=== PATIENT | male | born 1990 | race African-American/Black ===

== ENCOUNTER 2024-06-12 10:16 | Inpatient (IN) | payer BC, SELFPAY ==
[2024-06-12 12:20] LABS: Hematocrit 36.7 % (42.0-52.0); Hemoglobin 11.7 g/dL (14.0-18.0); Mean Corpuscular HGB CONC 31.9 g/dL (32.0-36.0); Mean Corpuscular Hemoglobin 25.2 pg (27.0-31.0); Mean Corpuscular Volume 79.1 fL (78.0-98.0); Mean Platelet Volume 10.3 fL (7.4-10.4); Platelet Count 331 10x3/uL (130-400); RBC Distribution Width 17.4 % (11.5-14.5); Red Blood Cell (RBC) Count 4.64 mill/uL (4.70-6.10)
[2024-06-12 12:31] LABS: Troponin I 0.099 ng/mL (< 0.028)
[2024-06-12 12:34] LABS: ALT (SGPT) 23 U/L (8-55); AST (SGOT) 29 U/L (5-34); Albumin 2.9 g/dL (3.5-5.0); Alkaline Phosphatase 50 U/L (40-110); Anion Gap 12 mmol/L (10-20); BUN (Urea Nitrogen) 20 mg/dL (8.9-20.6); Bilirubin, Total 0.5 mg/dL (0.2-1.2); Calc. Creatinine Clearance 0 mL/min (70-130); Calcium 8.7 mg/dL (7.8-10.44); Carbon Dioxide 24 mmol/L (22-29); Chloride 107 mmol/L (98-107); Estimated GFR 51; Glucose 99 mg/dL (70-105); Potassium 4.4 mmol/L (3.5-5.1); Protein, Total 6.9 g/dL (6.0-8.3); Sodium 139 mmol/L (136-145)
[2024-06-12 12:56] LABS: Anisocytosis MARKED = >30 cells HPF (0-5); Burr Cells SLIGHT = 2-5 cells HPF (0-1); Eosinophils 5 % (0-10); Large Platelets 5.8 % (0-5); Lymphocytes 24 % (21-51); Macrocytosis MODERATE=16-30 cells HPF (0-5); Monocytes 7 % (0-10); Neutrophil 63 % (42-75); Platelet Adequacy Comment Platelets Normal; Polychromasia SLIGHT = 2-3 cells HPF (0-2); Reactive Lymphocytes 1 % (0-10); Smudge Cells 18.3 %; Tear Drops SLIGHT = 2-5 cells HPF (0-1)
[2024-06-12] MEDS ORDERED: Aspirin Chewable 81 MG TAB ONE (13:00)
[2024-06-12] MEDS ORDERED: Nitroglycerin 2% Ointment 1 INCH/1 GM Packet ONE (13:00)
[2024-06-12] MEDS ORDERED: hydrALAZINE 20 MG/ML VIAL ONE (13:54)
[2024-06-12] MEDS ORDERED: niCARdipine 25 MG in Sodium Chloride 0.9% 250 ML 250 ML IVPB PRN ×2 (14:32→17:39)
[2024-06-12] MEDS ORDERED: Lidocaine 1% w/Epinephrine 1:100K 20 ML VIAL FS SCH (14:45)
[2024-06-12] MEDS ORDERED: Electrolyte Replacement Protocol FS PRN (15:15)
[2024-06-12] MEDS ORDERED: niCARdipine 25 MG/10 ML SDV ONE ×2 (15:40→18:47)
[2024-06-12] MEDS ORDERED: Furosemide 40 MG (4 mL) VIAL ONE (15:40)
[2024-06-12] MEDS: Furosemide 40 MG (4 mL) VIAL SLOW IVP SCH (15:47)
[2024-06-12 15:48] VITALS: BMI 40.4
[2024-06-12 16:39] LABS: Troponin I 0.121 ng/mL (< 0.028)
[2024-06-12] MEDS: NIFEdipine XL 90 MG ER.TAB PO SCH (16:41)
[2024-06-12] MEDS ORDERED: Metoprolol Tartrate 25 MG TAB ONE ×2 (17:45→21:43)
[2024-06-12] MEDS: Metoprolol Tartrate 25 MG TAB PO SCH ×2 (17:52→21:50)
[2024-06-12 18:55] LABS: Troponin I 0.113 ng/mL (< 0.028)
[2024-06-12] MEDS ORDERED: Magnesium 2 GM/50 ML BAG (IN WATER) ONE (19:03)
[2024-06-12] MEDS: Magnesium 2 GM/50 ML(in water) 2 GM in Premix 1 BAG IVPB SCH (19:05)
[2024-06-12] MEDS ORDERED: Enoxaparin 30 MG (0.3 mL) SYRINGE ONE (21:33)
[2024-06-12] MEDS: Isosorbide Dinitrate 20 MG TAB PO SCH (21:50)
[2024-06-12] MEDS: Enoxaparin 120 MG/0.8 ML SYRINGE SC SCH (21:51)
[2024-06-12] MEDS: Enoxaparin 30 MG (0.3 mL) SYRINGE SC SCH (21:51)
[2024-06-12] MEDS ORDERED: Acetaminophen 325 MG TAB ONE (23:23)
[2024-06-12] MEDS: Acetaminophen 325 MG TAB PO PRN (23:29)
[2024-06-13] MEDS: Electrolyte Replacement Protocol 1 EACH IVPB ONE (00:33)
[2024-06-13 04:47] LABS: #Basophils 0.08 10x3/uL (0.0-0.2); %Eosinophils 3.5 % (0.0-10.0); %Lymphocytes 19.9 % (21.0-51.0); %Monocytes 8.9 % (0.0-10.0); %Neutrophils 66.3 % (42.0-75.0); Hematocrit 36.7 % (42.0-52.0); Hemoglobin 11.9 g/dL (14.0-18.0); Mean Corpuscular HGB CONC 32.4 g/dL (32.0-36.0); Mean Corpuscular Hemoglobin 25.6 pg (27.0-31.0); Mean Corpuscular Volume 78.9 fL (78.0-98.0); Mean Platelet Volume 10.5 fL (7.4-10.4); Platelet Count 371 10x3/uL (130-400); RBC Distribution Width 17.1 % (11.5-14.5); Red Blood Cell (RBC) Count 4.65 mill/uL (4.70-6.10)
[2024-06-13 04:57] LABS: ALT (SGPT) 23 U/L (8-55); AST (SGOT) 26 U/L (5-34); Alkaline Phosphatase 51 U/L (40-110); Anion Gap 13 mmol/L (10-20); BUN (Urea Nitrogen) 19 mg/dL (8.9-20.6); Bilirubin, Total 0.4 mg/dL (0.2-1.2); Calc. Creatinine Clearance 144 mL/min (70-130); Calcium 8.5 mg/dL (7.8-10.44); Carbon Dioxide 25 mmol/L (22-29); Chloride 104 mmol/L (98-107); Estimated GFR 56; Glucose 99 mg/dL (70-105); Sodium 138 mmol/L (136-145)
[2024-06-13] MEDS: Cyclobenzaprine 10 MG TAB PO SCH (06:34)
[2024-06-13] MEDS: NIFEdipine XL 90 MG ER.TAB PO SCH (09:30)
[2024-06-13] MEDS: Carvedilol 25 MG TAB PO SCH (15:48)
[2024-06-13] MEDS: Enoxaparin 40 MG (0.4 mL) SYRINGE SC SCH (20:56)
[2024-06-14 04:50] LABS: #Basophils 0.07 10x3/uL (0.0-0.2); %Basophils 0.9 % (0.0-1.0); %Eosinophils 3.4 % (0.0-10.0); %Lymphocytes 17.8 % (21.0-51.0); %Monocytes 11.8 % (0.0-10.0); %Neutrophils 65.8 % (42.0-75.0); Hematocrit 36.2 % (42.0-52.0); Hemoglobin 11.8 g/dL (14.0-18.0); Mean Corpuscular HGB CONC 32.6 g/dL (32.0-36.0); Mean Corpuscular Hemoglobin 25.5 pg (27.0-31.0); Mean Corpuscular Volume 78.4 fL (78.0-98.0); Mean Platelet Volume 10.2 fL (7.4-10.4); Platelet Count 369 10x3/uL (130-400); RBC Distribution Width 17.2 % (11.5-14.5); Red Blood Cell (RBC) Count 4.62 mill/uL (4.70-6.10)
[2024-06-14 04:56] LABS: Hemoglobin A1c 5.4 % (4.0-6.0)
[2024-06-14 05:08] LABS: ALT (SGPT) 21 U/L (8-55); AST (SGOT) 20 U/L (5-34); Albumin 2.9 g/dL (3.5-5.0); Alkaline Phosphatase 48 U/L (40-110); Anion Gap 12 mmol/L (10-20); BUN (Urea Nitrogen) 17 mg/dL (8.9-20.6); Bilirubin, Total 0.3 mg/dL (0.2-1.2); Calc. Creatinine Clearance 150 mL/min (70-130); Calcium 8.8 mg/dL (7.8-10.44); Carbon Dioxide 24 mmol/L (22-29); Chloride 104 mmol/L (98-107); Estimated GFR 59; Globulin 4.1 g/dL (2.4-3.5); Glucose 87 mg/dL (70-105); Magnesium 1.9 mg/dL (1.6-2.6); Potassium 4.1 mmol/L (3.5-5.1); Sodium 136 mmol/L (136-145)
[2024-06-14] MEDS: Magnesium 2 GM/50 ML(in water) 2 GM in Premix 1 BAG IVPB SCH (08:40)
[2024-06-14] MEDS: Spironolactone 25 MG TAB PO SCH (11:55)
[2024-06-14] MEDS: Sacubitril 49 MG/Valsartan 51 MG TABLET PO SCH (20:44)
[2024-06-15 04:07] LABS: #Basophils 0.06 10x3/uL (0.0-0.2); %Basophils 0.8 % (0.0-1.0); %Eosinophils 4.2 % (0.0-10.0); %Lymphocytes 18.2 % (21.0-51.0); %Monocytes 14.4 % (0.0-10.0); %Neutrophils 61.9 % (42.0-75.0); Hematocrit 39.2 % (42.0-52.0); Hemoglobin 12.5 g/dL (14.0-18.0); Mean Corpuscular HGB CONC 31.9 g/dL (32.0-36.0); Mean Corpuscular Hemoglobin 25.1 pg (27.0-31.0); Mean Corpuscular Volume 78.6 fL (78.0-98.0); Mean Platelet Volume 10.3 fL (7.4-10.4); Platelet Count 392 10x3/uL (130-400); RBC Distribution Width 17.2 % (11.5-14.5); Red Blood Cell (RBC) Count 4.99 mill/uL (4.70-6.10)
[2024-06-15 04:45] LABS: ALT (SGPT) 20 U/L (8-55); AST (SGOT) 18 U/L (5-34); Albumin 2.9 g/dL (3.5-5.0); Alkaline Phosphatase 51 U/L (40-110); Anion Gap 13 mmol/L (10-20); BUN (Urea Nitrogen) 23 mg/dL (8.9-20.6); Bilirubin, Total 0.2 mg/dL (0.2-1.2); Calc. Creatinine Clearance 143 mL/min (70-130); Calcium 8.7 mg/dL (7.8-10.44); Carbon Dioxide 23 mmol/L (22-29); Cardiac Risk 6.6 (Less than 4.5); Chloride 105 mmol/L (98-107); Cholesterol 190 mg/dl (< 200 Desired); Estimated GFR 57; Globulin 4.3 g/dL (2.4-3.5); Glucose 93 mg/dL (70-105); HDL Cholesterol 29 mg/dL (>60 Neg Risk); LDL Cholesterol, Calculated 134 mg/dL; Magnesium 2.1 mg/dL (1.6-2.6); Potassium 4.2 mmol/L (3.5-5.1); Protein, Total 7.2 g/dL (6.0-8.3); Sodium 137 mmol/L (136-145); Triglycerides 137 mg/dL (Less than 150)
[2024-06-15] MEDS ORDERED: Regadenoson 0.4 MG/5 ML SYRINGE ONE (08:43)
[2024-06-15] MEDS: Spironolactone 25 MG TAB PO SCH (11:08)
[2024-06-15] MEDS: Azithromycin 250 MG TAB PO SCH (11:18)
[2024-06-15] MEDS: guaiFENesin ER 600 MG TAB PO SCH (20:49)
[2024-06-15] MEDS: Atorvastatin Calcium 40 MG TAB PO SCH (20:49)
[2024-06-16 04:16] LABS: #Basophils 0.07 10x3/uL (0.0-0.2); %Basophils 0.9 % (0.0-1.0); %Lymphocytes 19.3 % (21.0-51.0); %Monocytes 12.9 % (0.0-10.0); %Neutrophils 63.6 % (42.0-75.0); Hematocrit 38.4 % (42.0-52.0); Hemoglobin 12.5 g/dL (14.0-18.0); Mean Corpuscular HGB CONC 32.6 g/dL (32.0-36.0); Mean Corpuscular Hemoglobin 25.8 pg (27.0-31.0); Mean Corpuscular Volume 79.2 fL (78.0-98.0); Mean Platelet Volume 10.1 fL (7.4-10.4); Platelet Count 395 10x3/uL (130-400); RBC Distribution Width 17.2 % (11.5-14.5); Red Blood Cell (RBC) Count 4.85 mill/uL (4.70-6.10)
[2024-06-16 04:41] LABS: ALT (SGPT) 31 U/L (8-55); AST (SGOT) 30 U/L (5-34); Albumin 2.9 g/dL (3.5-5.0); Alkaline Phosphatase 52 U/L (40-110); Anion Gap 14 mmol/L (10-20); BUN (Urea Nitrogen) 27 mg/dL (8.9-20.6); Bilirubin, Total 0.2 mg/dL (0.2-1.2); Calc. Creatinine Clearance 126 mL/min (70-130); Calcium 8.8 mg/dL (7.8-10.44); Carbon Dioxide 22 mmol/L (22-29); Chloride 106 mmol/L (98-107); Estimated GFR 49; Globulin 4.1 g/dL (2.4-3.5); Glucose 109 mg/dL (70-105); Potassium 4.5 mmol/L (3.5-5.1); Sodium 137 mmol/L (136-145)
[2024-06-16] MEDS: Magnesium 2 GM/50 ML(in water) 2 GM in Premix 1 BAG IVPB SCH (08:33)
[2024-06-16] MEDS: Azithromycin 250 MG TAB PO SCH (08:33)
[2024-06-16] MEDS: Amlodipine 10 MG TAB PO SCH (10:18)
[2024-06-16 10:51] LABS: CK (CPK) 223 U/L (30-200); Iron 25 ug/dL (65-175); Iron Binding Capacity, Total 273 mcg/dL (261-462)
[2024-06-16] MEDS ORDERED: CATH FS PRN (12:30)
[2024-06-16] MEDS: Sodium Chloride 0.45% 1,000 ML IV SCH ×2 (13:16→13:49)
[2024-06-16] MEDS: Acetylcysteine 20% 200 MG/ML 30 ML VIAL PO SCH (13:48)
[2024-06-16] MEDS: Sodium Ferric Gluconate 250 MG in Sodium Chloride 0.9% 250 ML 250 ML IVPB SCH (14:32)
[2024-06-16] MEDS: FLU (Fluarix Triv) TS24-25(6MOS UP)/PF 45 MCG/0.5 ML Syringe IM ONE (14:38)
[2024-06-17 04:43] LABS: #Basophils 0.08 10x3/uL (0.0-0.2); %Basophils 1.4 % (0.0-1.0); %Eosinophils 3.8 % (0.0-10.0); %Lymphocytes 24.4 % (21.0-51.0); %Monocytes 13.9 % (0.0-10.0); %Neutrophils 56.2 % (42.0-75.0); Hematocrit 41.6 % (42.0-52.0); Hemoglobin 13.2 g/dL (14.0-18.0); Mean Corpuscular HGB CONC 31.7 g/dL (32.0-36.0); Mean Corpuscular Volume 78.9 fL (78.0-98.0); Platelet Count 429 10x3/uL (130-400); Red Blood Cell (RBC) Count 5.27 mill/uL (4.70-6.10)
[2024-06-17 05:02] LABS: ALT (SGPT) 35 U/L (8-55); AST (SGOT) 26 U/L (5-34); Albumin 2.9 g/dL (3.5-5.0); Alkaline Phosphatase 49 U/L (40-110); Anion Gap 14 mmol/L (10-20); BUN (Urea Nitrogen) 20 mg/dL (8.9-20.6); Bilirubin, Total 0.3 mg/dL (0.2-1.2); CK (CPK) 205 U/L (30-200); Calc. Creatinine Clearance 152 mL/min (70-130); Calcium 9.1 mg/dL (7.8-10.44); Carbon Dioxide 21 mmol/L (22-29); Chloride 108 mmol/L (98-107); Estimated GFR 63; Globulin 4.3 g/dL (2.4-3.5); Glucose 85 mg/dL (70-105); Potassium 4.6 mmol/L (3.5-5.1); Protein, Total 7.2 g/dL (6.0-8.3); Sodium 138 mmol/L (136-145)
[2024-06-17 05:07] LABS: Troponin I 0.101 ng/mL (< 0.028)
[2024-06-17] MEDS ORDERED: fentaNYL 50 mcg/mL 1 mL Vial ONE (06:14)
[2024-06-17] MEDS ORDERED: Heparin 10,000 UNITS/ 10 ML VIAL ONE (06:15)
[2024-06-17] MEDS ORDERED: Nitroglycerin 50 MG/250 ML BOT 0 ML ONE (06:15)
[2024-06-17] MEDS ORDERED: Midazolam HCl 2 mg/2 ml Vial ONE (06:15)
[2024-06-17] MEDS ORDERED: hydrALAZINE 20 MG/ML VIAL ONE (07:13)
[2024-06-17] MEDS ORDERED: Sodium Chloride 0.9% 200 ML IV PRN (07:51)
[2024-06-17] MEDS ORDERED: Acetaminophen/Codeine 30-300mg Tablet PO PRN ×2 (07:51)
[2024-06-17] MEDS ORDERED: Nitroglycerin 0.4 MG TAB (25 Tab Bottle) SL PRN (07:51)
[2024-06-17 08:15] LABS: Bacteria/HPF None Seen HPF (None Seen); Bilirubin Negative (Negative); Blood, Urine Negative (Negative); Clarity Clear (Clear); Glucose, Urine (Dipstick) Normal (Negative); Ketone, Urine Negative (Negative); Leukocyte Negative Leu/uL (Negative); Nitrite Negative (Negative); Protein, Urine (Dipstick) 300 mg/dL (Neg-Trace); RBC/HPF 0-3 HPF (0-3); Specific Gravity, Urine 1.021 (1.002-1.036); Squamous Epithelial 0-3 HPF (0-3); Urobilinogen Normal mg/dL (Less than 2); WBC/HPF 0-3 HPF (0-3)
[2024-06-17 08:20] LABS: Sodium, Urine 94 mmol/L (Not Available); Urea Nitrogen, Random Urine 1059 mg/dl
[2024-06-17 08:31] LABS: Protein, Urine Random Quant 340 mg/dL (1-14)
[2024-06-17] MEDS: 1/2 NS IV SCH (08:39)
[2024-06-17] MEDS: SODIUM CHLORIDE 0.9% IV SCH (08:39)
[2024-06-17] MEDS: D5 IV SCH (08:39)
[2024-06-17] MEDS: Sodium Chloride 0.45% 1,000 ML IV SCH ×2 (08:39→08:54)
[2024-06-17] MEDS: Magnesium 2 GM/50 ML(in water) 2 GM in Premix 1 BAG IVPB SCH (08:53)
[2024-06-17] MEDS ORDERED: Acetaminophen 650 MG/20.3 ML UDCUP PO PRN (09:07)
[2024-06-17] MEDS ORDERED: Iopamidol 370 76% 100 ML VIAL ONE (11:40)
[2024-06-17 15:37] LABS: Metanephrine,Plasma 32.3 pg/mL (0.0-88.0); Normetanephrine,Pl 190.1 pg/mL (0.0-210.1)
[2024-06-17] MEDS: Cyclobenzaprine 10 MG TAB PO SCH (16:38)
[2024-06-17] MEDS: Sodium Ferric Gluconate 250 MG in Sodium Chloride 0.9% 250 ML 250 ML IVPB SCH (16:39)
[2024-06-18 04:44] LABS: #Basophils 0.06 10x3/uL (0.0-0.2); %Basophils 0.7 % (0.0-1.0); %Eosinophils 1.5 % (0.0-10.0); %Lymphocytes 13.2 % (21.0-51.0); %Monocytes 14.5 % (0.0-10.0); %Neutrophils 69.6 % (42.0-75.0); Hematocrit 38.1 % (42.0-52.0); Hemoglobin 12.1 g/dL (14.0-18.0); Mean Corpuscular HGB CONC 31.8 g/dL (32.0-36.0); Mean Corpuscular Hemoglobin 25.2 pg (27.0-31.0); Mean Corpuscular Volume 79.4 fL (78.0-98.0); Mean Platelet Volume 10.1 fL (7.4-10.4); Platelet Count 459 10x3/uL (130-400); RBC Distribution Width 17.1 % (11.5-14.5)
[2024-06-18 04:59] LABS: ALT (SGPT) 29 U/L (8-55); AST (SGOT) 25 U/L (5-34); Albumin 2.9 g/dL (3.5-5.0); Alkaline Phosphatase 49 U/L (40-110); Anion Gap 12 mmol/L (10-20); BUN (Urea Nitrogen) 22 mg/dL (8.9-20.6); Bilirubin, Total 0.3 mg/dL (0.2-1.2); Calc. Creatinine Clearance 160 mL/min (70-130); Carbon Dioxide 23 mmol/L (22-29); Chloride 107 mmol/L (98-107); Estimated GFR 67; Globulin 4.2 g/dL (2.4-3.5); Glucose 92 mg/dL (70-105); Potassium 4.7 mmol/L (3.5-5.1); Protein, Total 7.1 g/dL (6.0-8.3); Sodium 137 mmol/L (136-145)
[2024-06-18] MEDS: Magnesium 2 GM/50 ML(in water) 2 GM in Premix 1 BAG IVPB SCH (08:32)
[2024-06-18] MEDS ORDERED: Sacubitril 49 MG/Valsartan 51 MG TABLET PO SCH (09:00)
[2024-06-18] MEDS: Dapagliflozin Propanediol 10 MG TAB PO SCH (10:52)
[2024-06-18] MEDS: Sacubitril 49 MG/Valsartan 51 MG TABLET PO SCH ×2 (10:53→21:13)
[2024-06-18] MEDS: Cyclobenzaprine 10 MG TAB PO SCH ×2 (10:54→15:56)
[2024-06-18] MEDS: NIFEdipine XL 90 MG ER.TAB PO SCH (10:57)
[2024-06-18] MEDS: traMADol HCl 50 MG TAB PO SCH (21:13)
[2024-06-19 04:29] LABS: #Basophils 0.07 10x3/uL (0.0-0.2); %Basophils 0.7 % (0.0-1.0); %Eosinophils 0.9 % (0.0-10.0); %Lymphocytes 10.5 % (21.0-51.0); %Monocytes 15.8 % (0.0-10.0); %Neutrophils 71.8 % (42.0-75.0); Hematocrit 37.8 % (42.0-52.0); Hemoglobin 12.2 g/dL (14.0-18.0); Mean Corpuscular HGB CONC 32.3 g/dL (32.0-36.0); Mean Corpuscular Hemoglobin 25.4 pg (27.0-31.0); Mean Corpuscular Volume 78.6 fL (78.0-98.0); Mean Platelet Volume 9.8 fL (7.4-10.4); Platelet Count 444 10x3/uL (130-400); RBC Distribution Width 17.1 % (11.5-14.5); Red Blood Cell (RBC) Count 4.81 mill/uL (4.70-6.10)
[2024-06-19 04:37] LABS: ALT (SGPT) 26 U/L (8-55); AST (SGOT) 17 U/L (5-34); Alkaline Phosphatase 50 U/L (40-110); Anion Gap 13 mmol/L (10-20); BUN (Urea Nitrogen) 19 mg/dL (8.9-20.6); Bilirubin, Total 0.3 mg/dL (0.2-1.2); Calc. Creatinine Clearance 165 mL/min (70-130); Calcium 8.9 mg/dL (7.8-10.44); Carbon Dioxide 22 mmol/L (22-29); Chloride 106 mmol/L (98-107); Estimated GFR 70; Globulin 4.1 g/dL (2.4-3.5); Glucose 88 mg/dL (70-105); Magnesium 1.8 mg/dL (1.6-2.6); Potassium 4.5 mmol/L (3.5-5.1); Protein, Total 7.1 g/dL (6.0-8.3); Sodium 136 mmol/L (136-145)
[2024-06-19] MEDS: Magnesium 2 GM/50 ML(in water) 2 GM in Premix 1 BAG IVPB SCH (08:31)
[2024-06-19] MEDS: Magnesium Oxide 400 MG TAB PO SCH (09:02)
[2024-06-19 10:15] LABS: Kappa Lambda Light Chain Ratio 0.89 (0.26-1.65); Kappa Light Chains 34.3 mg/L (3.3-19.4); Lambda Light Chain 38.5 mg/L (5.7-26.3)
[2024-06-19 11:11] VITALS: BMI 38.8
[2024-06-19] MEDS: NIFEdipine XL 30 MG ER.TAB PO SCH (11:31)
[2024-06-19 16:09] VITALS: BP 134/88; TEMP 97.8
[2024-06-19 17:39] LABS: A/G Ratio 0.7 (0.7-1.7); Albumin 2.7 g/dL (2.9-4.4); Alpha 1 0.3 g/dL (0.0-0.4); Beta 1.3 g/dL (0.7-1.3); Gamma 1.4 g/dL (0.4-1.8); M-Spike Not Observed g/dL (Not Observed); Protein Electrophoresis Intrp Note: (.)
[2024-06-21 16:37] LABS: Albumin, PEP 24hr Ur 76.1 % (NOT ESTAB.); Alpha-1-Globulin, PEP 24h Ur 2.8 % (NOT ESTAB.); Alpha-2-Globulin, PEP 24h Ur 4.7 % (NOT ESTAB.); Beta Globulin, PEP 24h Ur 9.2 % (NOT ESTAB.); Gamma Globulin, PEP 24h Ur 7.2 % (NOT ESTAB.); M-Spike,% PEP 24hr Ur Not Observed % (Not Observed); Protein, PEP 24hr calculated 3408 mg/24 hr (30-150); Protein, Urine 117.5 mg/dL (Not Estab.)
== END 2024-06-19 19:05 | disposition home or self-care (01) | DRG 287 ==
LOC: ERS 10:16 → ERHOLD 14:59 → 2NO 06-13 00:21
PROVIDERS: ADMIT Internal Medicine; ATTEND Student in an Organized Health Care Education/Training Program
PROC: 4A023N7 Measurement of Cardiac Sampling and Pressure, Left Heart, Percutaneous Approach (ICD-10-PCS; principal; 2024-06-17)
PROC: B2111ZZ Fluoroscopy of Multiple Coronary Arteries using Low Osmolar Contrast (ICD-10-PCS; 2024-06-17)
DX: I16.1 Hypertensive emergency (principal); I42.9 Cardiomyopathy, unspecified; N17.9 Acute kidney failure, unspecified; I47.10 Supraventricular tachycardia, unspecified; F17.210 Nicotine dependence, cigarettes, uncomplicated; Z79.899 Other long term (current) drug therapy; E66.01 Morbid (severe) obesity due to excess calories; Z68.38 Body mass index [BMI] 38.0-38.9, adult; Z79.01 Long term (current) use of anticoagulants; I13.0 Hypertensive heart and chronic kidney disease with heart failure and stage 1 through stage 4 chronic kidney disease, or unspecified chronic kidney disease; N18.9 Chronic kidney disease, unspecified; F32.A Depression, unspecified; D63.1 Anemia in chronic kidney disease
CPT/HCPCS: 36415; 71045; 76770; 78452; 80053; 80061; 81001; 82088; 82550; 82570; 82728; 83036; 83540; 83550; 83735; 83835; 83880; 83883; 84145; 84155; 84156; 84165; 84166; 84244; 84300; 84443; 84484; 84540; 85025; 93005; 93017; 93306; 93458; 93798; 93976; 94640; 96365; 96366; 96375; 97139; 99152; 99292; A9502; C1769; C1887; J0132; J0360; J1644; J1650; J1940; J2250; J2785; J2916; J3010; J3475; J7050; Q9967